=== PATIENT | male | born 1980 | race African-American/Black ===

== ENCOUNTER 2019-12-01 09:43 | Emergency (ER) | payer SELFPAY ==
[~2019-12-01] VITALS: Ht 170.2 cm; Wt 52.8 kg
[2019-12-01 10:24] LABS: BASO % 1.1 % (0.0-1.0); EOS # 0.1 10^3/uL (0.0-0.5); EOS % 2.7 % (0.0-3.0); HEMOGLOBIN 15.4 g/dl (13.5-17.5); LYMPH % 37.9 % (24.0-44.0); MEAN CORPUSCULAR HEMOGLOBIN 30.9 pg (27.0-33.0); MEAN CORPUSCULAR VOLUME 88.2 fl (80.0-96.0); MONO # 0.4 10^3/uL (0.0-0.8); MONO % 13.6 % (0.0-5.0); NEUTROPHILS # 1.2 10^3/uL (1.5-8.5); NEUTROPHILS % 44.3 % (36.0-66.0); PLATELET COUNT, AUTOMATED 237 10^3/uL (150-450); RED BLOOD COUNT 4.99 10^6/uL (4.30-6.10); WHITE BLOOD COUNT 2.6 10^3/uL (4.0-10.0)
[2019-12-01 10:37] LABS: INR 1.05; PROTHROMBIN TIME 13.5 SECONDS (11.8-14.0)
[2019-12-01 10:47] LABS: ALBUMIN 4.4 GM/DL (3.2-5.2); BILIRUBIN,DIRECT 0.7 MG/DL (0.0-0.2); BILIRUBIN,TOTAL 3.3 MG/DL (0.2-1.0); ETHYL ALCOHOL (ETHANOL) 0.061 % (0.000-0.010); TOTAL PROTEIN 8.1 GM/DL (6.4-8.2)
--- NOTE | 2019-12-01 10:48 | REP ---
Chest x-ray: Two views. History: Shortness of breath . Comparison study: No comparison study . Findings: The lungs are well inflated and free of infiltrate. The pleural angles are sharp. The heart size is normal. Pulmonary vasculature is not increased. No significant bony abnormality is seen. Impression: Negative chest x-ray. Electronically Signed by Bryan Mcqueen MD 12/01/2019 10:39 A
[2019-12-01 10:56] LABS: D-DIMER QUANT < 270 ng/ml (<500)
[2019-12-01 11:00] LABS: AMPHETAMINES LEVEL URINE NEGATIVE (NEGATIVE); BARBITURATES URINE NEGATIVE (NEGATIVE); BENZODIAZEPINES URINE NEGATIVE (NEGATIVE); CANNABINOIDS URINE POSITIVE (NEGATIVE); COCAINE METABOLITE URINE NEGATIVE (NEGATIVE); METHADONE URINE NEGATIVE (NEGATIVE); OPIATES URINE NEGATIVE (NEGATIVE); PHENCYCLIDINE URINE NEGATIVE (NEGATIVE)
[2019-12-01 11:31] VITALS: BP 135/86
== END 2019-12-01 11:40 | disposition home or self-care (01) ==
LOC: M ED 09:43
DX: F10.10 Alcohol abuse, uncomplicated (principal); D72.819 Decreased white blood cell count, unspecified; R17 Unspecified jaundice; F17.200 Nicotine dependence, unspecified, uncomplicated
CPT/HCPCS: 36415; 71046; 80047; 80076; 80307; 83690; 85025; 85379; 85610; 85730; 99283; G0480